=== PATIENT | female | born 1980 | race Caucasian/White ===

== ENCOUNTER 2020-02-01 12:46 | Emergency (ER) | payer BC ==
[~2020-02-01] VITALS: Ht 160 cm; Wt 63.5 kg
[2020-02-01 12:51] VITALS: BP 115/78; Ht 160 cm; Wt 63.5 kg
== END 2020-02-01 13:50 | disposition home or self-care (01) ==
LOC: ED 12:46
DX: M79.10 Myalgia, unspecified site (principal); R05 Cough; Z20.828 Contact with and (suspected) exposure to other viral communicable diseases